=== PATIENT | female | born 1990 | race Hispanic/Latino ===

== ENCOUNTER 2024-08-09 11:50 | Emergency (ER) | payer BC, OTHER ==
[2024-08-09] MEDS ORDERED: Ibuprofen 800 MG TAB ONE (13:23)
== END 2024-08-09 14:12 | disposition home or self-care (01) ==
LOC: CSHERS 11:50
DX: M54.50 Low back pain, unspecified (principal); V43.92XA Unspecified car occupant injured in collision with other type car in traffic accident, initial encounter
CPT/HCPCS: 72100; 99283